=== PATIENT | male | born 1985 | race Caucasian/White ===

== ENCOUNTER 2017-02-16 10:36 | Emergency (ER) | payer SELFPAY ==
[~2017-02-16 10:36] MED LIST: NO HOME MEDICATION XX; TOBRAMYCIN5 ML LEFT EYE
[2017-02-16] MEDS ORDERED: NORCO 5-325 TA1 EACH PO (12:20)
== END 2017-02-16 12:45 ==
LOC: EDMED 10:36
PROC: 2W3QXYZ Immobilization of Right Lower Leg using Other Device (ICD-10-PCS; principal; 2017-02-16)
DX: S86.811A Strain of other muscle(s) and tendon(s) at lower leg level, right leg, initial encounter (principal); F17.200 Nicotine dependence, unspecified, uncomplicated; W19.XXXA Unspecified fall, initial encounter